=== PATIENT | female | born 1990 | race Two or more races ===

== ENCOUNTER 2023-04-28 18:14 | Emergency (ER) | payer SELFPAY ==
[~2023-04-28] VITALS: Ht 167.6 cm; Wt 72.5 kg
[2023-04-28 18:37] VITALS: BP 137/84; PULSE 95; RESP 18; TEMP 98.1; O2SAT 97
[2023-04-28 18:59] LABS: Urine Amorphous Crystal FEW /hpf (None Seen); Urine Bacteria NONE SEEN /hpf (None Seen); Urine Blood 2+ /uL (Negative); Urine Clarity HAZY (Clear); Urine Color Yellow (Yellow); Urine Mucus FEW (None Seen); Urine Protein, UAD TRACE (Negative); Urine Specific Gravity 1.028 (1.001-1.035); Urine WBC 1 /hpf (0 - 5)
[2023-04-28 19:33] LABS: Basophils # (auto) 0 10 ^3/uL (0-0.2); Basophils % (auto) 0.7 % (0.0-2.0); Eosinophils # (auto) 0.1 10 ^3/uL (0-0.8); Eosinophils % (auto) 2.4 % (0.0-7.0); Hematocrit 39.5 % (36.0-46.0); Hemoglobin 12.8 g/dL (12.2-16.2); Lymphocytes # (auto) 2.8 10 ^3/uL (0.4-5.4); Lymphocytes % (auto) 47.7 % (10.0-50.0); Mean Corpuscular Hemoglobin 27.2 pg (28.0-32.0); Mean Corpuscular Hgb Conc. 32.4 g/dL (32.0-36.0); Monocytes # (auto) 0.6 10 ^3/uL (0-1.3); Monocytes % (auto) 9.5 % (0.0-12.0); Neutrophils # (auto) 2.3 10 ^3/uL (1.6-8.6); Neutrophils % (auto) 39.7 % (37.0-80.0); Nucleated Red Blood Cells % 0.1 %; Red Cell Distribution Width 14.1 % (11.8-14.3); White Blood Cell 5.8 10^3/uL (4.4-10.8)
[2023-04-28 19:48] LABS: Alanine Aminotransferase 10 U/L (7-40); Albumin 4.5 g/dL (3.2-4.8); Alkaline Phosphatase 57 U/L (46-116); Anion Gap 7 (5-15); Aspartate Aminotransferase 10 U/L (13-40); BUN/Creatinine Ratio 27.6 (10.0-20.0); Bilirubin, Total 0.4 mg/dL (0.2-1.0); Blood Urea Nitrogen 16 mg/dL (9-23); Calcium 9.1 mg/dL (8.7-10.4); Carbon Dioxide 23 mmol/L (20-30); Chloride 109 mmol/L (98-107); Glucose 94 mg/dL (74-106); Potassium 3.6 mmol/L (3.5-5.1); Sodium 139 mmol/L (136-145); Total Protein 7.1 g/dL (5.7-8.2)
[2023-04-28] MEDS ORDERED: AZITHROMYCIN 250 MG TAB PO ONE (21:15)
[2023-04-28] MEDS ORDERED: cefTRIAXone SOD 1,000 MG VL IM ONE (21:15)
[2023-04-28] MEDS ORDERED: MET500T PO (21:35)
[2023-04-28] MEDS ORDERED: CEPH500C PO (21:35)
== END 2023-04-28 22:29 | disposition home or self-care (01) ==
LOC: ER 18:14
DX: N76.0 Acute vaginitis (principal); N39.0 Urinary tract infection, site not specified; Z11.3 Encounter for screening for infections with a predominantly sexual mode of transmission; Z79.899 Other long term (current) drug therapy
CPT/HCPCS: 36415; 76775; 80053; 81001; 81025; 85025; 87491; 87591; 96372; 99285; J0696